=== PATIENT | male | born 1980 | race Caucasian/White ===

== ENCOUNTER → 2016-12-26 | Outpatient (CLI) | payer BC ==
--- NOTE | 2016-12-26 17:25 | DIAGNOSTIC IMAGING REPORT ---
TWO VIEW CHEST CLINICAL HISTORY: Cough. FINDINGS: PA and lateral chest radiographs are obtained. No prior studies are available for comparison at the time of dictation. The PA view is degraded by patient rotation. The patient is status post midline sternotomy. The heart is enlarged. The pulmonary vasculature is noncongested. The lungs and pleural spaces are clear. There is no pneumothorax. The bony thorax appears intact. IMPRESSION: Cardiomegaly with no acute cardiopulmonary abnormality. Electronically signed by: Dennys Walters M.D. 12/26/2016 5:24 PM Dictated Date/Time: 12/26/2016 5:23 PM
== END | disposition home or self-care (01) ==
LOC: C.RAD 17:04
PROVIDERS: ATTEND Family Medicine
DX: J18.9 Pneumonia, unspecified organism (principal)

== ENCOUNTER → 2017-05-04 | Outpatient (CLI) | payer BC ==
[~2017-05-04] MED LIST: OPTIRAY 320 IV PRN
--- NOTE | 2017-05-04 10:43 | DIAGNOSTIC IMAGING REPORT ---
CT OF THE CHEST WITHOUT CONTRAST AND CT ANGIOGRAPHY OF THE CHEST CLINICAL HISTORY: Status post Ross surgery. 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 COMPARISON STUDY: No previous studies for comparison. TECHNIQUE: Initially, unenhanced axial images of the chest were obtained. Arterial phase imaging of the chest was then performed following intravenous injection of 92 cc of Optiray 320 IV. Sagittal and coronal reconstructions were viewed as well as maximal intensity projections on an independent 3-D workstation. FINDINGS: The heart is moderately enlarged. There is no pericardial effusion. There are findings consistent with aortic valve replacement. The caliber at the level of the aortic valve is normal. However, there is dilatation of the aortic root which measures 6.9 x 6.1 cm, just distal to the valve. The distal ascending aorta measures 5.3 cm. The caliber of the descending thoracic aorta is normal. There is no dissection. Note is made of extensive calcification of the right ventricular outflow tract at site of pulmonary homograft. Dilatation of the right heart chambers may be due to elevated pressures. No enlarged thoracic lymph nodes are present. Central airways are patent. There is no consolidation to suggest pneumonia. No pneumothorax or pleural effusion is present. Mild left pleural calcification is chronic. A gallstone is noted within the gallbladder. The upper abdomen is otherwise unremarkable. IMPRESSION: 1. Postoperative findings consistent with Ross procedure. Dilatation of the aortic root which measures 6.9 x 6.1 cm, just distal to the replaced aortic valve. Moderate dilatation of the distal ascending aorta with normal caliber descending thoracic aorta. No dissection. Extensive calcification of the right ventricular outflow tract, likely at site of pulmonary homograft. 2. Moderate cardiomegaly. 3. No acute intrathoracic findings. 4. Cholelithiasis. Electronically signed by: Terrell Westfall M.D. 05/04/2017 10:41 AM Dictated Date/Time: 05/04/2017 10:18 AM
== END | disposition home or self-care (01) ==
LOC: C.CTS 09:49
PROVIDERS: ATTEND Internal Medicine
DX: I35.0 Nonrheumatic aortic (valve) stenosis (principal); I37.0 Nonrheumatic pulmonary valve stenosis; I77.810 Thoracic aortic ectasia

== ENCOUNTER → 2017-09-10 | Outpatient (CLI) | payer BC ==
[2017-09-10 17:36] LABS: BASO % 0.8 %; BASO ABS # 0.05 K/uL (0-0.2); EOS % 6.7 %; HEMATOCRIT 37.1 % (42-52); HEMOGLOBIN 12.4 g/dL (14.0-18.0); IG# 0.01 K/uL (0.00-0.02); LYMPH % 15.5 %; LYMPH ABS # 0.93 K/uL (1.2-3.4); MEAN CELL VOLUME 88.8 fL (80-100); MEAN CORPUSCULAR HEMOGLOBIN 29.7 pg (25-34); MEAN CORPUSCULAR HGB CONC 33.4 g/dl (32-36); MONO % 7.8 %; MONO ABS # 0.47 K/uL (0.11-0.59); NEUT ABS # 4.14 K/uL (1.4-6.5); PLATELET COUNT 431 K/uL (130-400); RED CELL DISTRIBUTION WIDTH CV 14.4 % (11.5-14.5)
[2017-09-10 17:43] LABS: BLOOD UREA NITROGEN 13 mg/dl (7-18); CARBON DIOXIDE 26 mmol/L (21-32); CREATININE 0.83 mg/dl (0.60-1.40); GLUCOSE 125 mg/dl (70-99); POTASSIUM 4.1 mmol/L (3.5-5.1); SODIUM 137 mmol/L (136-145)
== END | disposition home or self-care (01) ==
LOC: C.LABSPEC 15:32
PROVIDERS: ATTEND Student in an Organized Health Care Education/Training Program
DX: Z01.89 Encounter for other specified special examinations (principal)